=== PATIENT | male | born 1975 | race Two or more races ===

== ENCOUNTER → 2019-10-10 | Outpatient (CLI) | payer OTHER ==
--- NOTE | 2019-10-11 11:04 | SLEEP ---
DATE OF STUDY: 10/10/2019 SLEEP STUDY ATTENDING PHYSICIAN: Dr. Crocker. The patient is a 44-year-old who weighs 130 pounds with a BMI of 23. The patient's [place] score was 4. The patient underwent diagnostic study performed at [facility] During the night study, the patient spent 418 minutes in bed and slept for 325 minutes with a sleep efficiency of 78%. Sleep latency was prolonged at 58 minutes with a REM latency of 141 minutes. Sleep architecture showed normal stage 1 sleep, increased stage 2 sleep, normal slow wave and slightly reduced REM sleep. No PLMS were observed. Nocturnal oximetry study revealed a mean oxygen saturation of 98% with the lowest of 91%. EKG monitoring revealed normal sinus rhythm, no sustained arrhythmias observed. Average heart rate of 68 beats per minute. Due to low AHI, the patient did not meet the split night criteria for CPAP initiation. IMPRESSION: 1. No clinically significant sleep disorder breathing. The patient's AHI for the entire night was 2 per hour. 2. No clinically significant nocturnal hypoxia. 3. No clinically significant periodic limb movements. RECOMMENDATIONS: 1. The patient did not meet the split night criteria for CPAP initiation. 2. Avoid [employer] depressants. 3. Caution regarding driving when sleepy. MICHELE TRAMMELL MD DR: SHILO/filiberto JOB#: [id number] / [id number]
== END ==
LOC: SLPLAB 19:00
PROVIDERS: ATTEND Nurse Practitioner Family
DX: G47.9 Sleep disorder, unspecified (principal)
CPT/HCPCS: 95810